=== PATIENT | male | born 1965 | race Caucasian/White ===

== ENCOUNTER 2019-06-04 08:34 | Outpatient (CLI) | payer OTHER ==
[2019-06-04] MEDS ORDERED: ALBU18HF INH (09:17)
[2019-06-04] MEDS ORDERED: SIMV20TA3 PO (09:17)
[2019-06-04] MEDS ORDERED: OMEP20TA62 PO (09:17)
[2019-06-04] MEDS ORDERED: UBID1CAP43 PO (09:17)
[2019-06-04] MEDS ORDERED: CETI10TA18 PO (09:17)
== END 2019-06-04 23:59 | disposition home or self-care (01) ==
LOC: STAR 08:34
PROVIDERS: ATTEND Orthopaedic Surgery
DX: Z01.818 Encounter for other preprocedural examination (principal); M75.122 Complete rotator cuff tear or rupture of left shoulder, not specified as traumatic; M25.521 Pain in right elbow
CPT/HCPCS: 71046

== ENCOUNTER 2019-06-09 10:10 | Day surgery (SDC) | payer OTHER ==
[~2019-06-09] VITALS: Ht 175.3 cm; Wt 85.5 kg
[~2019-06-09 10:10] MED LIST: ALBU18HF INH; BUPIVACAINE/PF 0.25% ONE; CETI10TA18 PO; EPINEPHRINE 1 MG/ML, 1ML ONE; OMEP20TA62 PO; SIMV20TA3 PO; UBID1CAP43 PO
[2019-06-09] MEDS ORDERED: LACTATED RINGERS 1,000 ML IV SCH (10:20)
[2019-06-09] MEDS ORDERED: SCOPOLAMINE PATCH, 1.5MG PATCH.TD72 TD STA (10:20)
[2019-06-09] MEDS ORDERED: ACETAMINOPHEN 500 MG TABLET PO STA (10:20)
[2019-06-09] MEDS ORDERED: GABAPENTIN 300 MG CAPSULE PO ONE (10:20)
[2019-06-09] MEDS ORDERED: MIDAZOLAM 1 MG/ML, 2ML ONE (10:27)
[2019-06-09] MEDS ORDERED: FENTANYL PF 100 MCG/2ML ONE (10:27)
[2019-06-09 10:40] VITALS: BP 125/89
[2019-06-09] MEDS ORDERED: EPHEDRINE 50 MG/ML, 1ML ONE (11:19)
[2019-06-09] MEDS ORDERED: LIDOCAINE 2% 100MG/5ML SYRINGE ONE (11:19)
[2019-06-09] MEDS ORDERED: OXYcodone 5 MG/5 ML ORAL.SOL UDC PO PRN (12:00)
[2019-06-09] MEDS ORDERED: FENTANYL PF 100 MCG/2ML IV PRN (12:00)
[2019-06-09] MEDS ORDERED: ONDANSETRON ODT 8 MG PO PRN (12:00)
[2019-06-09] MEDS ORDERED: ONDANSETRON 2MG/ML, 2ML IV PRN (12:00)
[2019-06-09] MEDS ORDERED: PROMETHAZINE 25 MG SUPP PR PRN (12:00)
[2019-06-09] MEDS ORDERED: LORazepam 2 MG/ML, 1ML IVPush PRN (12:00)
[2019-06-09] MEDS ORDERED: HYDROmorphone 1 MG/ML, 1ML INJ IVPush PRN (12:00)
[2019-06-09] MEDS ORDERED: SUCCINYLCHOLINE 20 MG/ML, 10ML ONE (12:28)
[2019-06-09] MEDS ORDERED: PROPOFOL 10 MG/ML, 20ML ONE (12:28)
[2019-06-09] MEDS ORDERED: SUGAMMADEX 200 MG/2 ML IVPush ONE (12:28)
[2019-06-09] MEDS ORDERED: DEXAMETHASONE 4 MG/ML, 1ML ONE (12:28)
[2019-06-09] MEDS ORDERED: CEFAZOLIN 1,000 MG ONE (12:28)
[2019-06-09] MEDS ORDERED: GLYCOPYRROLATE 0.2MG/1ML, 5ML ONE (12:28)
[2019-06-09] MEDS ORDERED: NEOSTIGMINE 1 MG/ML, 10ML ONE (12:28)
[2019-06-09] MEDS ORDERED: ROCURONIUM 10MG/ML,5ML ONE (12:28)
[2019-06-09] MEDS ORDERED: ONDANSETRON 2MG/ML, 2ML ONE (12:28)
== END 2019-06-09 14:00 | disposition home or self-care (01) ==
LOC: OR 10:10
PROVIDERS: ATTEND Orthopaedic Surgery
DX: M75.32 Calcific tendinitis of left shoulder (principal); M75.42 Impingement syndrome of left shoulder; M19.012 Primary osteoarthritis, left shoulder; S43.432A Superior glenoid labrum lesion of left shoulder, initial encounter; M94.212 Chondromalacia, left shoulder; E78.5 Hyperlipidemia, unspecified; K21.9 Gastro-esophageal reflux disease without esophagitis; Z79.1 Long term (current) use of non-steroidal anti-inflammatories (NSAID); Z98.890 Other specified postprocedural states; X58.XXXA Exposure to other specified factors, initial encounter; Y93.89 Activity, other specified; Y92.89 Other specified places as the place of occurrence of the external cause; Y99.8 Other external cause status
CPT/HCPCS: 29823; 29824; 29826; 64415; 73020; J0171; J0690; J1100; J2250; J2405; J2704; J3010; J3490; J7120; 76000; J2710; J0330